=== PATIENT | male | born 1995 | race Caucasian/White ===

== ENCOUNTER 2018-08-16 15:12 | Emergency (ER) | payer BC, OTHER ==
[~2018-08-16 15:12] MED LIST: CEPH500T7 PO; LOR5 PO; NO RTN MEDS; NOR5/325 PO; OXYC-689 PO; OXYC15TA PO; PER PO
--- NOTE | 2018-08-16 15:16 | ER Report ---
History and Physical Time Seen By MD: 15:16 HPI/ROS CHIEF COMPLAINT: Left lower quadrant abdominal pain HISTORY OF PRESENT ILLNESS: Patient is a 23-year-old male here with complaints of left lower quadrant abdominal pain since yesterday. Patient reports that the pain is cramping in nature, intermittent and approximately same severity as when it started. Patient is afebrile, hemodynamically stable. Denies hematuria, melena, fevers, chills, nausea, vomiting, shortness breath. Patient denies taking analgesics. Denies other medical problems. REVIEW OF SYSTEMS: Constitutional: No fever, no chills. Eyes: No discharge. ENT: No sore throat. Cardiovascular: No chest pain, no palpitations. Respiratory: No cough, no shortness of breath. Gastrointestinal: + LLQ abdominal pain, no vomiting or nausea. Genitourinary: No hematuria. Musculoskeletal: No back pain. Skin: No rashes. Neurological: No headache. Allergies: Coded Allergies: No Known Drug Allergies (Verified , 08/16/18) Home Meds Active Scripts Naproxen (NAPROXEN) 500 Mg Tablet, 500 MG PO BID, #30 TAB Prov:ALEXSANDRA BRADSHAW DO 08/16/18 Hx Smoking: No Constitutional Physical Exam General Appearance: The patient is alert, has no immediate need for airway protection and no signs of toxicity. No acute distress Eyes: Pupils equal and round no pallor or injection. ENT, Mouth: Mucous membranes are moist. Respiratory: There are no retractions, lungs are clear to auscultation. Cardiovascular: Regular rate and rhythm. Gastrointestinal: Abdomen is soft and + tender in the LLQ, no masses, bowel sounds normal. Neurological: No focal neuro deficits Skin: Warm and dry, no rashes. Musculoskeletal: Neck is supple non tender. Extremities are nontender, nonswollen and have full range of motion. DIFFERENTIAL DIAGNOSIS: After history and physical exam differential diagnosis was considered for abdominal pain including but not limited to appendicitis, cholecystitis, gastritis and urinary tract infection, musculoskeletal pain Medical Decision Making Data Points Laboratory Hematology Test 08/16/18 15:35 08/16/18 15:40 Urine Color Yellow Urine Clarity Clear Urine pH 7.0 pH (4.8-9.5) Urine Specific Freeman 1.018 Urine Protein Negative mg/dL (NEGATIVE) Urine Glucose (UA) Negative mg/dL (NEGATIVE) Urine Ketones Negative mg/dL (NEGATIVE) Urine Blood Negative (NEGATIVE) Urine Nitrite Negative (NEGATIVE) Urine Bilirubin Negative (NEGATIVE) Urine Urobilinogen Negative mg/dL (0.2-1.9) Urine Leukocyte Esterase Negative (NEGATIVE) Urine RBC None /HPF (0-2/HPF) Urine WBC <1 /HPF (0-5/HPF) Urine Squamous Epithelial Cells None /LPF (</=FEW) Urine Bacteria Negative /HPF (NONE-FEW) Urine Hyaline Casts Few /LPF (NONE-FEW) Urine Mucus None /HPF (NONE-FEW) Red Blood Count 6.38 M/uL (4.00-5.60) Mean Corpuscular Volume 82.3 fL (80.0-96.0) Mean Corpuscular Hemoglobin 28.3 pg (26.0-33.0) Mean Corpuscular Hemoglobin Concent 34.3 g/dL (32.0-36.0) Red Cell Distribution Width 13.3 % (11.5-14.5) Mean Platelet Volume 7.0 fL (7.2-11.1) Neutrophils (%) (Auto) 62.3 % (39.4-72.5) Lymphocytes (%) (Auto) 24.4 % (17.6-49.6) Monocytes (%) (Auto) 8.7 % (4.1-12.4) Eosinophils (%) (Auto) 3.8 % (0.4-6.7) Basophils (%) (Auto) 0.8 % (0.3-1.4) Nucleated RBC Relative Count (auto) 0.0 /100WBC Neutrophils # (Auto) 6.4 K/uL (2.0-7.4) Lymphocytes # (Auto) 2.5 K/uL (1.3-3.6) Monocytes # (Auto) 0.9 K/uL (0.3-1.0) Eosinophils # (Auto) 0.4 K/uL (0.0-0.5) Basophils # (Auto) 0.1 K/uL (0.0-0.1) Nucleated RBC Absolute Count (auto) 0.00 K/uL Sodium Level 143 mmol/L (137-145) Potassium Level 3.9 mmol/L (3.5-5.0) Chloride Level 106 mmol/L (98-107) Carbon Dioxide Level 26 mmol/L (22-30) Blood Urea Nitrogen 12 mg/dl (9-21) Creatinine 1.00 mg/dl (0.66-1.25) Glomerular Filtration Rate Calc > 60.0 Random Glucose 89 mg/dl (75-110) Calcium Level 9.7 mg/dl (8.4-10.2) Total Bilirubin 0.4 mg/dl (0.2-1.3) Aspartate Amino Transf (AST/SGOT) 22 U/L (0-35) Alanine Aminotransferase (ALT/SGPT) 47 U/L (0-56) Alkaline Phosphatase 76 U/L (0-126) C-Reactive Protein < 0.5 mg/dl (<1.0) Total Protein 7.9 g/dl (6.3-8.2) Albumin 4.6 g/dl (3.5-5.0) Lipase 63 U/L (23-300) Chemistry Test 08/16/18 15:35 08/16/18 15:40 Urine Color Yellow Urine Clarity Clear Urine pH 7.0 pH (4.8-9.5) Urine Specific Freeman 1.018 Urine Protein Negative mg/dL (NEGATIVE) Urine Glucose (UA) Negative mg/dL (NEGATIVE) Urine Ketones Negative mg/dL (NEGATIVE) Urine Blood Negative (NEGATIVE) Urine Nitrite Negative (NEGATIVE) Urine Bilirubin Negative (NEGATIVE) Urine Urobilinogen Negative mg/dL (0.2-1.9) Urine Leukocyte Esterase Negative (NEGATIVE) Urine RBC None /HPF (0-2/HPF) Urine WBC <1 /HPF (0-5/HPF) Urine Squamous Epithelial Cells None /LPF (</=FEW) Urine Bacteria Negative /HPF (NONE-FEW) Urine Hyaline Casts Few /LPF (NONE-FEW) Urine Mucus None /HPF (NONE-FEW) White Blood Count 10.3 k/uL (4.5-11.0) Red Blood Count 6.38 M/uL (4.00-5.60) Hemoglobin 18.0 g/dL (14.0-18.0) Hematocrit 52.5 % (42.0-52.0) Mean Corpuscular Volume 82.3 fL (80.0-96.0) Mean Corpuscular Hemoglobin 28.3 pg (26.0-33.0) Mean Corpuscular Hemoglobin Concent 34.3 g/dL (32.0-36.0) Red Cell Distribution Width 13.3 % (11.5-14.5) Platelet Count 298 K/uL (150-450) Mean Platelet Volume 7.0 fL (7.2-11.1) Neutrophils (%) (Auto) 62.3 % (39.4-72.5) Lymphocytes (%) (Auto) 24.4 % (17.6-49.6) Monocytes (%) (Auto) 8.7 % (4.1-12.4) Eosinophils (%) (Auto) 3.8 % (0.4-6.7) Basophils (%) (Auto) 0.8 % (0.3-1.4) Nucleated RBC Relative Count (auto) 0.0 /100WBC Neutrophils # (Auto) 6.4 K/uL (2.0-7.4) Lymphocytes # (Auto) 2.5 K/uL (1.3-3.6) Monocytes # (Auto) 0.9 K/uL (0.3-1.0) Eosinophils # (Auto) 0.4 K/uL (0.0-0.5) Basophils # (Auto) 0.1 K/uL (0.0-0.1) Nucleated RBC Absolute Count (auto) 0.00 K/uL Glomerular Filtration Rate Calc > 60.0 Calcium Level 9.7 mg/dl (8.4-10.2) Total Bilirubin 0.4 mg/dl (0.2-1.3) Aspartate Amino Transf (AST/SGOT) 22 U/L (0-35) Alanine Aminotransferase (ALT/SGPT) 47 U/L (0-56) Alkaline Phosphatase 76 U/L (0-126) C-Reactive Protein < 0.5 mg/dl (<1.0) Total Protein 7.9 g/dl (6.3-8.2) Albumin 4.6 g/dl (3.5-5.0) Lipase 63 U/L (23-300) Urinalysis Test 08/16/18 15:35 Urine Color Yellow Urine Clarity Clear Urine pH 7.0 pH (4.8-9.5) Urine Specific Freeman 1.018 Urine Protein Negative mg/dL (NEGATIVE) Urine Glucose (UA) Negative mg/dL (NEGATIVE) Urine Ketones Negative mg/dL (NEGATIVE) Urine Blood Negative (NEGATIVE) Urine Nitrite Negative (NEGATIVE) Urine Bilirubin Negative (NEGATIVE) Urine Urobilinogen Negative mg/dL (0.2-1.9) Urine Leukocyte Esterase Negative (NEGATIVE) Urine RBC None /HPF (0-2/HPF) Urine WBC <1 /HPF (0-5/HPF) Urine Squamous Epithelial Cells None /LPF (</=FEW) Urine Bacteria Negative /HPF (NONE-FEW) Urine Hyaline Casts Few /LPF (NONE-FEW) Urine Mucus None /HPF (NONE-FEW) ED Course/Re-evaluation ED Course Patient is a 23 year-old male here with complaints of left lower quadrant abdominal pain since yesterday. Patient has been tolerating by mouth intake and denies blood in the stools or urine, burning with urination, nausea, vomiting, chest pain or shortness breath, fevers or chills. Pain is reproducible on light palpation of the left lower quadrant and has no associated symptoms. Pain is approximately the same level of severity as well as started. Due to the patient's clinical presentation, decision was made to completely basic labs prior to proceeding to imaging. There is no leukocytosis, and kidney function was intact, electrolytes were unremarkable, urinalysis was noninfectious, CRP was negative. Decision was made to forego imaging due to location and lack of associated symptoms. Patient was advised to follow-up with his PCP in the next couple days and to return promptly if you develop fevers, chills, worsening pain, blood in the stools or urine, PO intolerance. Decision to Disposition Date: Aug 16, 2018 Decision to Disposition Time: 16:06 Depart Departure Latest Vital Signs Impression: Primary Impression: Abdominal pain Condition: Improved Disposition: HOME OR SELF-CARE Referrals: NOLAN ANTHONY (PCP) New Scripts Naproxen (NAPROXEN) 500 Mg Tablet 500 MG PO BID, #30 TAB Prov: ALEXSANDRA BRADSHAW DO 08/16/18 Patient Instructions: Abdominal Pain (ED) Additional Instructions: Please drink plenty of water. You may take naproxen up to 500 mg twice daily as needed for pain control. Please follow-up with your family doctor in the next couple days for reevaluation. Please return promptly if you develop worsening pain, blood in the urine or stools, fevers, chills, nausea or vomiting. ALEXSANDRA BRADSHAW DO Aug 16, 2018 15:16
[2018-08-16] MEDS ORDERED: KETOROLAC 30 MG/ML VIAL IM ONE (15:25)
[2018-08-16 15:45] LABS: PLATELET COUNT, AUTOMATED 298 K/uL (150-450)
[2018-08-16 15:58] VITALS: BP 133/77
[2018-08-16] MEDS ORDERED: NAPR500T31 PO (16:19)
== END 2018-08-16 16:19 | disposition home or self-care (01) ==
LOC: ER 15:21
DX: R10.32 Left lower quadrant pain (principal)
CPT/HCPCS: 81001; 83690; 85025; 86140; 96372; 99283; J1885; 82040; 82247; 82310; 82374; 82435; 82565; 82947; 84075; 84132; 84155; 84295; 84450; 84460; 84520